=== PATIENT | male | born 2000 | race Caucasian/White ===

== ENCOUNTER 2021-12-16 18:04 | Emergency (ER) | payer OTHER ==
[~2021-12-16] VITALS: Ht 177 cm; Wt 95.0 kg
[2021-12-16 19:56] LABS: BASOPHILS % (AUTO) 0 % (0-10); EOSINOPHILS % (AUTO) 0 % (0-10); HEMATOCRIT 47 % (40-54); HEMOGLOBIN 16.3 g/dL (13.3-17.7); LYMPHOCYTES # (AUTO) 1.6 10^3/uL (1.0-4.0); LYMPHOCYTES % (AUTO) 14 % (12-44); MEAN CORPUSCULAR HEMOGLOBIN 31 pg (25-34); MEAN CORPUSCULAR HGB CONC 35 g/dL (32-36); MEAN CORPUSCULAR VOLUME 87 fL (80-99); MEAN PLATELET VOLUME 9.7 fL (9.0-12.2); MONOCYTES # (AUTO) 0.7 10^3/uL (0.0-1.0); MONOCYTES % (AUTO) 6 % (0-12); NEUTROPHILS # (AUTO) 8.9 10^3/uL (1.8-7.8); NEUTROPHILS % (AUTO) 79 % (42-75); PLATELET COUNT 281 10^3/uL (130-400); WHITE BLOOD COUNT 11.3 10^3/uL (4.3-11.0)
[2021-12-16 20:03] LABS: CLARITY,URINE SL CLOUDY; COLOR,URINE YELLOW; GLUCOSE, URINE (UA) NEGATIVE (NEGATIVE); KETONES,URINE 2+ (NEGATIVE); LEUKOCYTE ESTERASE ,URINE NEGATIVE (NEGATIVE); NITRITE,URINE NEGATIVE (NEGATIVE); PROTEIN,URINE 2+ (NEGATIVE)
[2021-12-16 20:15] LABS: BACTERIA,URINE FEW /HPF; RBC,URINE TNTC /HPF; SQUAMOUS EPITHELIAL CELL,UR 0-2 /HPF
[2021-12-16 20:16] LABS: BILIRUBIN,URINE 1+ (NEGATIVE)
[2021-12-16 20:26] LABS: ALANINE AMINOTRANSFERASE 43 U/L (0-55); ALBUMIN 5.3 GM/DL (3.2-4.5); ALKALINE PHOSPHATASE 77 U/L (40-136); AMYLASE 47 U/L (25-125); BILIRUBIN,TOTAL 0.7 MG/DL (0.1-1.0); BUN/CREATININE RATIO 10; CALCIUM 10.1 MG/DL (8.5-10.1); CARBON DIOXIDE 23 MMOL/L (21-32); CHLORIDE 102 MMOL/L (98-107); CREATININE SERUM 1.36 MG/DL (0.60-1.30); GFR ESTIMATED 75; GLUCOSE 112 MG/DL (70-105); LIPASE 16 U/L (8-78); POTASSIUM 3.5 MMOL/L (3.6-5.0); SODIUM 141 MMOL/L (135-145); TOTAL PROTEIN 8.9 GM/DL (6.4-8.2)
[2021-12-16] MEDS ORDERED: ONDANSETRON 4 MG/2 ML (SDV) Z0FRAN IVP ONE (20:45)
[2021-12-16] MEDS ORDERED: KETOROLAC 30 MG/ML VIAL IVP ONE (20:45)
[2021-12-16] MEDS ORDERED: LACTATED RINGERS 1,000 ML IV ONE (20:45)
[2021-12-16 21:06] LABS: AMPHETAMINE SCREEN, URINE NEGATIVE (NEGATIVE); BARBITURATE SCREEN URINE NEGATIVE (NEGATIVE); BENZODIAZEPINES SCREEN URINE NEGATIVE (NEGATIVE); CANNABINOID SCREEN, URINE NEGATIVE (NEGATIVE); COCAINE SCREEN URINE NEGATIVE (NEGATIVE); METHADONE STAT NEGATIVE (NEGATIVE); OPIATE SCREEN URINE NEGATIVE (NEGATIVE); OXYCODONE STAT NEGATIVE (NEGATIVE); PROPOXYPHENE STAT NEGATIVE (NEGATIVE); TRICYCLIC ANTIDEPRESSANTS SCRE NEGATIVE (NEGATIVE)
--- NOTE | 2021-12-16 21:08 | Diagnostic Imaging Report ---
PROCEDURE: CT urinary tract, rule out kidney stone. TECHNIQUE: Multiple contiguous axial images were obtained through the abdomen and pelvis without the use of intravenous contrast. Auto Exposure Controls were utilized during the CT exam to meet ALARA standards for radiation dose reduction. INDICATION: Left lower quadrant abdominal pain. COMPARISON: None. FINDINGS: 0.2 cm renal stone in the left proximal ureter with mild hydronephrosis. No other renal stone. The lung bases are clear. The liver, gallbladder, pancreas, spleen, adrenals, right kidney, right ureter and bladder are negative. Normal appendix. Enteric contrast in the distal small bowel and proximal colon. No lymphadenopathy. No free intraperitoneal air or fluid. No evidence of bowel obstruction. No acute osseous finding. IMPRESSION: 0.2 cm renal stone in the proximal left ureter resulting in mild left hydronephrosis. Dictated by: Dictated on workstation # [id number]
--- NOTE | 2021-12-16 21:09 | Diagnostic Imaging Report ---
EXAM: Abdomen/KUB 1view INDICATION: Abdominal pain. COMPARISON: CT abdomen and pelvis without contrast also performed today. FINDINGS: Nonspecific bowel gas pattern. Small amount of enteric contrast in the distal small bowel and proximal colon. The 0.2 cm renal stone in the proximal left ureter is too small to characterize by radiography. No acute osseous finding. IMPRESSION: No acute radiographic finding in the abdomen. Dictated by: Dictated on workstation # [id number]
--- NOTE | 2021-12-16 21:12 | ED Abdominal Pain ---
General Chief Complaint: Abdominal/GI Problems Stated Complaint: LOWER ABDOMINAL PAIN Nursing Triage Note: ARRIVED VIA AMB WITH COMPLAINTS OF MID/LEFT LOWER ABD PAIN X2 DAYS ALONG WITH VOMITING. Source of Information: Patient History of Present Illness Date Seen by Provider: Dec 16, 2021 Time Seen by Provider: 19:42 Allergies and Home Medications Allergies Coded Allergies: No Known Drug Allergies (Unverified , 12/16/21) Past Naevmli-Kwxadv-Tofdgm Hx Patient Social History Tobacco Use?: No Substance use?: No Alcohol Use?: No Immunizations Up To Date First/Initial COVID19 Vaccinat: OVER A YEAR AGO COVID19 Vaccine Patient Support Specialist: MODERNA Physical Exam Vital Signs Vital Signs - First Documented 12/16/21 18:14 Temp 37.3 Pulse 79 Resp 16 B/P (MAP) 146/94 (111) Pulse Ox 97 O2 Delivery Room Air Capillary Refill : Less Than 3 Seconds Height/Weight/BMI Height: '" Weight: lbs. oz. kg; 30.00 BMI Method: Progress/Results/Core Measures Results/Orders Lab Results Laboratory Tests Test 12/16/21 19:45 12/16/21 20:00 Range/Units White Blood Count 11.3 H 4.3-11.0 10^3/uL Red Blood Count 5.35 4.30-5.52 10^6/uL Hemoglobin 16.3 13.3-17.7 g/dL Hematocrit 47 40-54 % Mean Corpuscular Volume 87 80-99 fL Mean Corpuscular Hemoglobin 31 25-34 pg Mean Corpuscular Hemoglobin Concent 35 32-36 g/dL Red Cell Distribution Width 12.0 10.0-14.5 % Platelet Count 281 130-400 10^3/uL Mean Platelet Volume 9.7 9.0-12.2 fL Immature Granulocyte % (Auto) 0 % Neutrophils (%) (Auto) 79 H 42-75 % Lymphocytes (%) (Auto) 14 12-44 % Monocytes (%) (Auto) 6 0-12 % Eosinophils (%) (Auto) 0 0-10 % Basophils (%) (Auto) 0 0-10 % Neutrophils # (Auto) 8.9 H 1.8-7.8 10^3/uL Lymphocytes # (Auto) 1.6 1.0-4.0 10^3/uL Monocytes # (Auto) 0.7 0.0-1.0 10^3/uL Eosinophils # (Auto) 0.0 0.0-0.3 10^3/uL Basophils # (Auto) 0.0 0.0-0.1 10^3/uL Immature Granulocyte # (Auto) 0.0 0.0-0.1 10^3/uL Sodium Level 141 135-145 MMOL/L Potassium Level 3.5 L 3.6-5.0 MMOL/L Chloride Level 102 98-107 MMOL/L Carbon Dioxide Level 23 21-32 MMOL/L Anion Gap 16 H 5-14 MMOL/L Blood Urea Nitrogen 13 7-18 MG/DL Creatinine 1.36 H 0.60-1.30 MG/DL Estimat Glomerular Filtration Rate 75 BUN/Creatinine Ratio 10 Glucose Level 112 H 70-105 MG/DL Calcium Level 10.1 8.5-10.1 MG/DL Corrected Calcium 8.5-10.1 MG/DL Total Bilirubin 0.7 0.1-1.0 MG/DL Aspartate Amino Transf (AST/SGOT) 27 5-34 U/L Alanine Aminotransferase (ALT/SGPT) 43 0-55 U/L Alkaline Phosphatase 77 40-136 U/L Total Protein 8.9 H 6.4-8.2 GM/DL Albumin 5.3 H 3.2-4.5 GM/DL Amylase Level 47 25-125 U/L Lipase 16 8-78 U/L Serum Alcohol < 10 <10 MG/DL Urine Color YELLOW Urine Clarity SL CLOUDY Urine pH 6.0 5-9 Urine Specific Har[place] >=1.030 1.016-1.022 Urine Protein 2+ H NEGATIVE Urine Glucose (UA) NEGATIVE NEGATIVE Urine Ketones 2+ H NEGATIVE Urine Nitrite NEGATIVE NEGATIVE Urine Bilirubin 1+ H NEGATIVE Urine Urobilinogen 0.2 < = 1.0 MG/DL Urine Leukocyte Esterase NEGATIVE NEGATIVE Urine RBC (Auto) 3+ H NEGATIVE Urine RBC TNTC H /HPF Urine WBC 2-5 /HPF Urine Squamous Epithelial Cells 0-2 /HPF Urine Crystals NONE /LPF Urine Bacteria FEW H /HPF Urine Casts NONE /LPF Urine Mucus LARGE H /LPF Urine Culture Indicated YES Urine Opiates Screen NEGATIVE NEGATIVE Urine Oxycodone Screen NEGATIVE NEGATIVE Urine Methadone Screen NEGATIVE NEGATIVE Urine Propoxyphene Screen NEGATIVE NEGATIVE Urine Barbiturates Screen NEGATIVE NEGATIVE Ur Tricyclic Antidepressants Screen NEGATIVE NEGATIVE Urine Phencyclidine Screen NEGATIVE NEGATIVE Urine Amphetamines Screen NEGATIVE NEGATIVE Urine Methamphetamines Screen NEGATIVE NEGATIVE Urine Benzodiazepines Screen NEGATIVE NEGATIVE Urine Cocaine Screen NEGATIVE NEGATIVE Urine Cannabinoids Screen NEGATIVE NEGATIVE My Orders Orders - DAVID ROSS DO Ed Iv/Invasive Line Start (12/16/21 19:41) Alcohol (12/16/21 19:41) Amylase (12/16/21 19:41) Cbc With Automated Diff (12/16/21 19:41) Comprehensive Metabolic Panel (12/16/21 19:41) Drug Screen Stat (Urine) (12/16/21 19:41) Lipase (12/16/21 19:41) Ua Culture If Indicated (12/16/21 19:41) Urine Culture (12/16/21 20:00) Ed Iv/Invasive Line Start (12/16/21 20:34) Lactated Ringers (Lr 1000 Ml Iv Solution (12/16/21 20:45) Ondansetron Injection (Zofran Injectio (12/16/21 20:45) Ct Abd/Pelvis Wo(Kidney Stone) (12/16/21 20:34) Abdomen/Kub 1view (12/16/21 20:34) Ketorolac Injection (Toradol Injection) (12/16/21 20:45) Tamsulosin Capsule (Flomax Capsule) (12/16/21 21:15) Rx-Hydrocodone/Apap 5-325 Mg (Rx-Vicodin (12/16/21 21:15) Medications Given in ED Current Medications Medications Dose Ordered Sig/Kaylan Route Start Time Stop Time Status Last Admin Dose Admin Ketorolac Tromethamine 30 mg ONCE ONCE IVP 12/16/21 20:45 12/16/21 20:46 DC 12/16/21 20:42 30 MG Lactated Ringer's 1,000 ml @ 0 mls/hr Q0M ONCE IV 12/16/21 20:45 12/16/21 20:46 DC 12/16/21 20:42 999 MLS/HR Ondansetron HCl 4 mg ONCE ONCE IVP 12/16/21 20:45 12/16/21 20:46 DC 12/16/21 20:41 4 MG Vital Signs/I&O 12/16/21 18:14 Temp 37.3 Pulse 79 Resp 16 B/P (MAP) 146/94 (111) Pulse Ox 97 O2 Delivery Room Air Blood Pressure Mean: 111 Progress Progress Note : Progress Note GIVEN IV FLUIDS, ZOFRAN AND TORADOL ALSO GIVEN FLOMAX Diagnostic Imaging Comments PER RADIOLOGIST REPORTS AT 2109 KUB XRAY--FINDINGS: Nonspecific bowel gas pattern. Small amount of enteric contrast in the distal small bowel and proximal colon. The 0.2 cm renal stone in the proximal left ureter is too small to characterize by radiography. No acute osseous finding. IMPRESSION: No acute radiographic finding in the abdomen. CT ABDOMEN/PELVIS- FINDINGS: 0.2 cm renal stone in the left proximal ureter with mild hydronephrosis. No other renal stone. The lung bases are clear. The liver, gallbladder, pancreas, spleen, adrenals, right kidney, right ureter and bladder are negative. Normal appendix. Enteric contrast in the distal small bowel and proximal colon. No lymphadenopathy. No free intraperitoneal air or fluid. No evidence of bowel obstruction. No acute osseous finding. IMPRESSION: 0.2 cm renal stone in the proximal left ureter resulting in mild left hydronephrosis. Reviewed: Reviewed by Me Departure Impression Primary Impression: Left ureteral calculus Disposition: HOME, SELF-CARE Condition: Improved Departure-Patient Inst. Decision time for Depature: 21:11 Referrals: DEV FORTUNE MD Patient Instructions: Kidney Stones (DC), How to Strain Your Urine Add. Discharge Instructions: LOTS OF CLEAR LIQUIDS--DRINK ENOUGH SO YOU ARE URINATING EVERY 2-3 HOURS WHILE AWAKE STRAIN ALL URINE--RETURN ANY STONES TO UROLOGIST OFFICE FOLLOW UP WITH DR. OFRTUNE THIS WEEK--CALL IN THE MORNING TO SCHEDULE AN APPOINTMENT All discharge instructions reviewed with patient and/or family. Voiced understanding. Scripts Ketorolac Tromethamine (Ketorolac Tromethamine) 10 Mg Tablet 10 MG PO Q6H for Pain, #15 TAB Prov: DAVID ROSS DO 12/16/21 Ciprofloxacin HCl (Ciprofloxacin HCl) 500 Mg Tablet 500 MG PO BID, #14 TAB Prov: VALENTINO ROSSA K DO 12/16/21 Tamsulosin HCl (Flomax) 0.4 Mg Cap 0.4 MG PO DAILY, #10 CAP Prov: VALENTINO ROSSA K 12/16/21 Hydrocodone Bit/Acetaminophen (HYDROcodone/APAP 7.5/325 TAB) 1 Ea Tablet 1 EA PO Q4-6 PRN for PAIN, #20 TAB Prov: CODYDAVID K DO 12/16/21 Ondansetron (Ondansetron Odt) 8 Mg Tab.rapdis 8 MG PO Q6H, #10 TAB Prov: DAVID ROSS DO 12/16/21 DAVID ROSS DO Dec 16, 2021 21:12
[2021-12-16] MEDS ORDERED: TAMSULOSIN 0.4 MG (FLOMAX) CAP PO SCH (21:15)
[2021-12-16] MEDS ORDERED: CIPR500T5 PO (21:26)
[2021-12-16] MEDS ORDERED: RX-ONDANSETRON 4 MG ODT (ZOFRAN) PPK #4 PO STA (21:26)
[2021-12-16] MEDS ORDERED: ONDA8TAB13 PO (21:26)
[2021-12-16] MEDS ORDERED: TMSL.4C PO (21:26)
[2021-12-16] MEDS ORDERED: HYDR-34 PO (21:26)
[2021-12-16] MEDS ORDERED: KETO10TA PO (21:26)
[2021-12-16 21:30] VITALS: BP 132/78
== END 2021-12-16 21:51 | disposition home or self-care (01) ==
LOC: ER 18:08
DX: N13.2 Hydronephrosis with renal and ureteral calculous obstruction (principal)
CPT/HCPCS: 74018; 74176; 80053; 80306; 81000; 82150; 83690; 85025; 87088; G0480; 36415; 80320